=== PATIENT | male | born 1940 | race Caucasian/White ===

== ENCOUNTER → 2016-06-09 | Outpatient (CLI) | payer MEDICARE, OTHER ==
--- NOTE | 2016-06-09 08:55 | CT ---
EXAM DESCRIPTION: CT CHEST WITHOUT IV CONTRAST CLINICAL HISTORY: OTHER DISORDERS OF THE LUNG COMPARISON: 10 November 2015. TECHNIQUE: Transaxial images were obtained without intravenous contrast media. Sagittal and coronal reconstruction was performed. FINDINGS: The thyroid is normal in appearance. No pathologic axillary adenopathy is observed. No hilar or mediastinal adenopathy is observed. A single prominent pretracheal node is observed. It has a normal fatty hilum. Coronary artery calcification is noted. No pleural fluid is seen. No adrenal masses are detected. Bullous changes are observed the lung apices. Degenerative changes are seen in the thoracic spine. A 1 cm in diameter scar-like mass is observed at the left lung apex. It has minimal calcification within it. Some upper lobe parenchymal scarring is observed on the patient's right. There is a small pleural-based nodule in the right anterior upper lobe. It measures 4.3 mm in diameter remains unchanged the prior exam. The lung parenchymal abnormalities remain unchanged when compared to the remote exam of 30 March 2014. IMPRESSION: Findings of bullous emphysema and upper lobe parenchymal scarring are observed. There there has been no significant interval change remote exam of 30 March 2014. Electronically signed by: Neo Bowser MD 06/09/2016 08:54
== END ==
LOC: CT 08:11
PROVIDERS: ATTEND Internal Medicine
DX: J98.4 Other disorders of lung (principal); J43.9 Emphysema, unspecified

== ENCOUNTER → 2016-06-20 | Outpatient (CLI) | payer MEDICARE, OTHER ==
--- NOTE | 2016-06-20 09:29 | RAD ---
EXAM DESCRIPTION: XR KNEE 4 OR MORE VIEWS CLINICAL HISTORY: PAIN IN RIGHT KNEE COMPARISON: None. TECHNIQUE: Three views. FINDINGS: Loss of medial and lateral joint space is observed. Minimal lateral tibial and femoral osteophyte formation is observed. Calcific atherosclerotic change is observed in the popliteal artery. Patellofemoral joint degenerative changes are observed. A small joint effusion is evident. No fracturing is detected. IMPRESSION: Tricompartmental joint degenerative changes are observed. A joint effusion is evident. Electronically signed by: Neo Bowser MD 06/20/2016 09:27
--- NOTE | 2016-06-20 09:32 | RAD ---
EXAM DESCRIPTION: XR PELVIS 1-2 VIEWS CLINICAL HISTORY: PAIN IN RIGHT HIP COMPARISON: 21 April 2011. TECHNIQUE: AP pelvis FINDINGS: Loss of joint space is observed in the left hip. Calcific atherosclerotic change is observed in the iliac and femoral vessels. Degenerative changes are observed the lower lumbar spine. Mild degenerative changes are observed in the sacroiliac joints. No fracturing is detected. IMPRESSION: Degenerative changes are observed the lower lumbar spine and sacroiliac joints. There is also loss of joint space in the left hip. Electronically signed by: Neo Bowser MD 06/20/2016 09:29
== END ==
LOC: RAD 08:11
PROVIDERS: ATTEND Orthopaedic Surgery
DX: M25.561 Pain in right knee (principal); M12.861 Other specific arthropathies, not elsewhere classified, right knee; M12.88 Other specific arthropathies, not elsewhere classified, other specified site; M25.551 Pain in right hip

== ENCOUNTER → 2016-09-26 | Outpatient (CLI) | payer MEDICARE, OTHER ==
--- NOTE | 2016-09-27 08:02 | RAD ---
Procedure: XR CHEST 2 VIEWS Exam Date: 09/26/2016 Ordering Provider: ALEXANDRIA COURTNEY Clinical Indication: Pneumonia Comparison: 06/09/2016 CT chest Findings: The heart is not enlarged. Pulmonary vasculature is normal. Mediastinal contour is normal. Aortic calcification. Changes of COPD/emphysema. There is no focal lung consolidation. Left basilar scarring. No pleural effusion. There is no pneumothorax. There is no acute bony or soft tissue abnormality. Impression: 1. No acute abnormalities in the chest. 2. COPD/emphysema. Electronically signed by: Abdoul Cr MD 09/27/2016 8:01 AM CDT
== END | disposition home or self-care (01) ==
LOC: RAD 11:34
PROVIDERS: ATTEND Nurse Practitioner Family
DX: J18.9 Pneumonia, unspecified organism (principal)

== ENCOUNTER → 2016-12-29 | Outpatient (CLI) | payer MEDICARE, OTHER ==
--- NOTE | 2017-01-01 09:01 | RAD ---
EXAM DESCRIPTION: Chest,2 Views CLINICAL HISTORY: 76 years, Male, COPD COMPARISON: September 26 FINDINGS: Adequate inspiration. Fibrotic type changes lower lung zones. Cardiac silhouette normal. Degenerative changes thoracic spine. IMPRESSION: Chronic appearing lung change with normal heart size Electronically signed by: Angus Leonard MD 01/01/2017 9:00 AM CDT
== END ==
LOC: LAB.O 08:23
PROVIDERS: ATTEND Nurse Practitioner Family
DX: I10 Essential (primary) hypertension (principal); J44.9 Chronic obstructive pulmonary disease, unspecified

== ENCOUNTER → 2017-04-03 | Outpatient (CLI) | payer MEDICARE, OTHER | LOC: SL 20:30 | PROVIDERS: ATTEND Urology | DX: G47.33 Obstructive sleep apnea (adult) (pediatric) (principal) ==

== ENCOUNTER → 2017-11-26 | Outpatient (CLI) | payer MEDICARE, OTHER ==
--- NOTE | 2017-11-26 10:42 | RAD ---
EXAM DESCRIPTION: Knee,Right Complete CLINICAL HISTORY: 76 years Male, KNEE PAIN COMPARISON: None. FINDINGS: Four views of the right knee show no acute fracture or malalignment. Tricompartmental degenerative changes are noted including joint space narrowing and osteophyte formation, worse in the lateral compartment including moderately advanced lateral joint space narrowing. Vascular calcifications are present. Tiny right knee joint effusion. IMPRESSION: Tricompartmental degenerative changes including moderately advanced lateral joint space narrowing with a small right knee joint effusion. Vascular calcifications. Electronically signed by: Guevara Lynn MD 11/26/2017 10:41 AM CDT
--- NOTE | 2017-11-26 10:44 | RAD ---
EXAM DESCRIPTION: Pelvis CLINICAL HISTORY: 76 years Male, HIP PAIN COMPARISON: None. FINDINGS: Single AP view of the pelvis was obtained. The right greater trochanter is excluded from this exam. With this in mind, no acute fracture or malalignment is seen. Mild bilateral hip joint space narrowing is noted, worse on the left side. Vascular calcifications are present. The bones appear demineralized. Degenerative changes are noted in the lower lumbar spine at several levels including degenerative disc disease. IMPRESSION: Generalized bony demineralization and mild degenerative changes in both hips. Degenerative disc disease at L3-4 and L4-5. Vascular calcifications Electronically signed by: Guevara Lynn MD 11/26/2017 10:42 AM CDT
== END ==
LOC: RAD 10:00
PROVIDERS: ATTEND Orthopaedic Surgery
DX: M25.561 Pain in right knee (principal); M25.551 Pain in right hip; M51.36 Other intervertebral disc degeneration, lumbar region

== ENCOUNTER 2018-03-05 05:54 | Day surgery (SDC) | payer MEDICARE, OTHER ==
[2018-03-05] MEDS ORDERED: ceFAZolin SODIUM 1 GM VIAL ONE ×2 (05:59→08:05)
[2018-03-05] MEDS ORDERED: SODIUM CHL 0.9% 100ML MINI-BAG 100 ML IVPB ONE (05:59)
[2018-03-05] MEDS ORDERED: LACTATED RINGERS 1,000 ML ONE (05:59)
[2018-03-05] MEDS ORDERED: LIDOCAINE 1% 10 ML VIAL INJ ONE (08:05)
[2018-03-05] MEDS ORDERED: VANCOMYCIN HCL INJ 1,000 MG VIAL IVPB ONE (08:05)
[2018-03-05] MEDS ORDERED: BUPIVACAINE 0.25% INJ 30 ML VIAL INJ ONE (08:05)
[2018-03-05] MEDS ORDERED: fentaNYL CITRATE INJ 50 MCG/ML AMP ONE (10:22)
[2018-03-05 11:35] VITALS: O2SAT 95
[2018-03-05 13:05] VITALS: BP 182/81; TEMP 96.5
--- NOTE | 2018-03-11 09:07 | OP ---
DATE OF PROCEDURE: 03/05/18 PREOPERATIVE DIAGNOSIS: 1. Ganglion cyst, left fourth digit. POSTOPERATIVE DIAGNOSIS: 1. Ganglion cyst, left fourth digit. PROCEDURE: 1. Excision of cyst. SURGEON: Ishaan Luna MD. BOTTOM SANDER: David Lin CST, SA-C. ANESTHESIA: Local with sedation. COMPLICATIONS: None. FINDINGS: Ganglion cyst of the fourth digit. INDICATION: Mr. Rankin has a history of swelling of the fourth digit that has been somewhat intermittent, but consistently present to some degree. The swelling was diagnosed as a ganglion cyst. After discussing the risks, benefits and alternatives to operative therapy with him, he has given informed consent. PROCEDURE: The patient was brought to the Operating Room and placed in supine position. Sedation was administered and local anesthetic was injected into the operative area. Following local anesthetic, the hand was sterilely prepped and draped. Following prepping and draping, an incision was made directly overlying the cyst. After identification of the cyst, blunt dissection was used to core the cyst out and it was transected at its base. Following that, the wound was very thoroughly irrigated and after irrigation, it was closed with Nylon suture. Sterile dressings were placed. The patient was awoken from anesthesia and taken to Recovery. POSTOPERATIVE PLAN: He will followup with us in approximately two days. #[id number] [facility]
== END 2018-03-05 11:50 | disposition home or self-care (01) ==
LOC: AMB 05:54
PROVIDERS: ATTEND Orthopaedic Surgery
DX: M67.432 Ganglion, left wrist (principal); I10 Essential (primary) hypertension; I25.10 Atherosclerotic heart disease of native coronary artery without angina pectoris; E11.9 Type 2 diabetes mellitus without complications; J44.9 Chronic obstructive pulmonary disease, unspecified; Z88.5 Allergy status to narcotic agent; Z87.891 Personal history of nicotine dependence; Z79.82 Long term (current) use of aspirin; Z79.899 Other long term (current) drug therapy
CPT/HCPCS: 01810; 25111; 36416; 82948; 87070; 88304; J0690; J3010; J3370; J7050; J7120

== ENCOUNTER → 2018-03-31 | Outpatient (CLI) | payer MEDICARE, OTHER | LOC: SL 20:28 | PROVIDERS: ATTEND Psychiatry & Neurology Neurology | DX: G47.33 Obstructive sleep apnea (adult) (pediatric) (principal) ==

== ENCOUNTER → 2018-12-17 | Outpatient (CLI) | payer MEDICARE, OTHER ==
--- NOTE | 2018-12-17 09:46 | RAD ---
EXAM DESCRIPTION: Chest,2 Views CLINICAL HISTORY: 78 years Male, SOLITARY PULMONARY NODULE COMPARISON: Radiographs the chest dated 12/21/2016. TECHNIQUE: PA and lateral radiographs of the chest were obtained. FINDINGS: Trachea is midline.The cardiomediastinal silhouette is normal in size. The pulmonary vasculature is within normal limits. Mild diffuse interstitial prominence is present. The lungs are clear with no acute consolidation.No evidence of pleural effusions.No evidence of pneumothorax. IMPRESSION: No acute cardiopulmonary process. Electronically signed by: Rose Hernández MD 12/17/2018 9:42 AM CDT
== END ==
LOC: LAB.O 08:45
PROVIDERS: ATTEND Nurse Practitioner Family
DX: R91.1 Solitary pulmonary nodule (principal); I10 Essential (primary) hypertension; E11.9 Type 2 diabetes mellitus without complications

== ENCOUNTER → 2019-02-14 | Outpatient (CLI) | payer MEDICARE, OTHER ==
--- NOTE | 2019-02-14 18:16 | RAD ---
EXAM DESCRIPTION: Pelvis CLINICAL HISTORY: RT HIP PAIN COMPARISON: 11/26/2017 TECHNIQUE: Frontal view of the pelvis. FINDINGS: Overlying bowel gas partially obscures the sacrum and medial aspect of the bilateral iliac wings, limiting evaluation within these regions. No acute displaced fracture or dislocation seen. The bilateral hip joints are intact. No displaced hip fractures. Moderate bilateral sacroiliac joints and lower lumbar spine degenerative changes. Atherosclerotic vascular calcifications are present. . IMPRESSION: 1. No acute displaced pelvic fracture. 2. If the patient's symptoms persist further evaluation with MRI can be considered. Electronically signed by: Ra Payne DO 02/14/2019 6:14 PM CDT
--- NOTE | 2019-02-14 18:19 | RAD ---
EXAM DESCRIPTION: Knee,Right Complete CLINICAL HISTORY: 78 years, Male, KNEE PAIN COMPARISON: 06/20/2016 TECHNIQUE: Four views of the right knee FINDINGS: No acute displaced fracture or dislocation is seen.: Moderate to severe tricompartmental knee joint osteoarthrosis with joint space narrowing, subchondral sclerosis and bulky marginal osteophyte formation is more pronounced at the medial knee compartment. Degenerative hypertrophy of the tibial spine. Small knee joint effusion. Moderate atherosclerotic vascular calcifications are present. IMPRESSION: 1. No acute osseous abnormality. 2. Moderate to severe right knee osteoarthrosis with small knee joint effusion. Electronically signed by: Ra Payne DO 02/14/2019 6:17 PM CDT
== END ==
LOC: RAD 07:24
PROVIDERS: ATTEND Orthopaedic Surgery
DX: M17.11 Unilateral primary osteoarthritis, right knee (principal); M25.551 Pain in right hip

== ENCOUNTER → 2019-05-12 | Outpatient (CLI) | payer MEDICARE, OTHER ==
--- NOTE | 2019-05-12 11:28 | RAD ---
EXAM DESCRIPTION: Ribs,Right 3 Views CLINICAL HISTORY: 78 years Male, PLEURODYNIA RIGHT COMPARISON: None. Findings: Three views/radiographs No pneumothorax or pleural effusion identified. Osteopenia. No acute displaced rib fracture identified. Degenerative changes in the right shoulder. Atherosclerotic plaque in the thoracic aorta. Right suprahilar airspace opacity of uncertain significance. IMPRESSION: Right suprahilar airspace opacity. An underlying mass is not excluded. Recommend CT chest for further evaluation. Electronically signed by: El Calloway MD 05/12/2019 11:26 AM [employer]
== END ==
LOC: RAD 09:41
PROVIDERS: ATTEND Nurse Practitioner Family
DX: R07.81 Pleurodynia (principal)

== ENCOUNTER → 2019-05-13 | Outpatient (CLI) | payer MEDICARE, OTHER ==
--- NOTE | 2019-05-13 11:49 | CT ---
EXAM DESCRIPTION: Chest w/Contrast CLINICAL HISTORY: 78 years Male, OTHER NONSPECIFIC ABNORMAL FINDING OF LUNG FIELD COMPARISON: Rib series dated 12 May 2019 TECHNIQUE: Transaxial images were obtained with intravenous contrast media. Sagittal and coronal reconstruction was performed.This exam was performed according to our departmental dose-optimization program, which includes automated exposure control, adjustment of the mA and/or kV according to patient size and/or use of iterative reconstruction technique. FINDINGS: The thyroid is normal in appearance. Apical bullous change and parenchymal scarring is observed. A large mass is observed in the posterior paratracheal region. There is also pretracheal adenopathy and right hilar adenopathy. Subcarinal adenopathy is noted. A second maribell cluster is observed in the right periaortic region inferiorly. No adrenal masses are detected. A small pleural-based nodule is observed along the anterolateral chest wall in the right middle lobe. Some posterior pleural-based thickening is noted. No pleural fluid is noted. Coronary artery calcification is observed. No bone abnormality is seen. IMPRESSION: 1. Extensive mediastinal adenopathy is observed. Lymphoma is suspected. Electronically signed by: Neo Bowser MD 05/13/2019 11:47 AM [facility]
== END ==
LOC: CT 09:30
PROVIDERS: ATTEND Nurse Practitioner Family
DX: R91.8 Other nonspecific abnormal finding of lung field (principal); R59.9 Enlarged lymph nodes, unspecified

== ENCOUNTER → 2019-05-14 | Outpatient (CLI) | payer MEDICARE, OTHER | LOC: LAB.O 12:30 | PROVIDERS: ATTEND Nurse Practitioner Family | DX: C38.3 Malignant neoplasm of mediastinum, part unspecified (principal) ==

== ENCOUNTER 2019-05-29 11:50 | Emergency (ER) | payer MEDICARE, OTHER ==
--- NOTE | 2019-05-29 13:05 | RAD ---
EXAM DESCRIPTION: Chest,2 Views CLINICAL HISTORY: wt loss, decreased po intake, known chest mass COMPARISON: Rib series May 12, 2019, chest x-ray December 29, 2016, CT chest May 13, 2017 TECHNIQUE: PA/lateral FINDINGS: Wide superior mediastinum with enlarged right hilum consistent with mass or adenopathy. Patient had CT of the chest showing bulky adenopathy consistent with lymphoma or lung cancer. Correlate with biopsy results. Scarring is seen in the right upper lobe. On the present chest x-ray, increased density is seen in the right lower lung zone and in the right upper lobe above the minor fissure consistent with patchy areas of pneumonic infiltration. Left lung remains clear. Lateral view shows osteopenic T-spine. Sternum appears intact. Lungs appear hyperexpanded on the lateral view. IMPRESSION: Wide superior mediastinum and large right pulmonary hilum consistent with mass or adenopathy. Patchy infiltrates in the right upper lobe and right lower lobe. Electronically signed by: Hilario Rivas MD 05/29/2019 1:04 PM [facility]
--- NOTE | 2019-05-29 13:06 | RAD ---
EXAM DESCRIPTION: Abdomen Flat Upright CLINICAL HISTORY: 78 years Male, wt loss, decreased po intake, known chest mass COMPARISON: None. FINDINGS: Upright view shows no free air under the diaphragm. Supine view shows degenerative changes in the lower lumbar spine. Bowel gas pattern is unremarkable. Calcified splenic artery in the left upper quadrant. Bones appear osteopenic. No bowel dilatation to suggest obstruction. IMPRESSION: Unremarkable bowel gas pattern. Electronically signed by: Hilario Rivas MD 05/29/2019 1:05 PM [facility]
[2019-05-29] MEDS ORDERED: cefTRIAXone SODIUM 1 GM in SODIUM CHL 0.9% 50ML MIN-BAG+ 50 ML IVPB ONE (13:14)
[2019-05-29] MEDS ORDERED: SODIUM CHLORIDE 0.9% 1000ML 1,000 ML IVS ONE (13:14)
[2019-05-29] MEDS ORDERED: AZITHROMYCIN IV 500 MG in SODIUM CHLORIDE 0.9% 250ML 250 ML IVPB ONE (13:14)
[2019-05-29] MEDS ORDERED: cefTRIAXone SODIUM 1 GM VIAL ONE (13:44)
[2019-05-29] MEDS ORDERED: SODIUM CHL 0.9% 50ML MIN-BAG+ 50 ML IVPB ONE (13:44)
--- NOTE | 2019-05-29 14:26 | ED.PDOC ---
History of Present Illness - General Chief Complaint: Neuro Symptoms/Deficits Stated Complaint: ALTERED MENTAL STATUS Time Seen by Provider: 05/29/19 12:11 Source: patient, family Exam Limitations: clinical condition - History of Present Illness Initial Comments: the patient is a 78-year-old male brought in by family secondary to increasing cough and shortness of breath last night as well as some mild confusion that is worse than normal for him. He does have some mild dementia as well as chronic lung disease. About 3 weeks ago he was evaluated for some back pain and was incidentally found to have a mediastinal mass at that time. He was being set up with a cardiothoracic surgeon in [place] however he has not been able to get the appointment yet. Family reports significant decreased oral intake over about the last 10-12 days both solids and liquids. The patient reports that he is just not hungry and does not want to eat. Family reports significant wasting. No vomiting. No abdominal pain. Timing/Duration: 24 hours Severity: moderate Improving Factors: nothing Worsening Factors: nothing Associated Symptoms: cough, loss of appetite, malaise, weakness Allergies/Adverse Reactions: Allergies Albuterol Allergy (Mild, Verified 03/01/18 09:36) Other Codeine Allergy (Mild, Verified 03/01/18 09:36) Zolpidem [From Ambien] Adverse Reaction (Intermediate, Verified 03/01/18 09:36) Home Medications: Ambulatory Orders Amiodarone HCl 200 mg PO DAILY 07/25/13 Aspirin [Aspirin 81] 81 mg PO DAILY 07/25/13 Diltiazem HCl Coated Beads [Diltiazem Cd] 120 mg PO DAILY 07/25/13 Pravastatin Sodium 40 mg PO HS 07/25/13 Budes/Formoterol INH 160/4.5 [Symbicort Inhaler 160/4.5] 1 puff INH BID 01/28/14 Fluticasone Prop 0.05% Nasal [Flonase Nasal [place]] 50 mcg NA DAILY 01/28/14 Potassium Chloride [Micro-K] 8 meq PO DAILY 01/28/14 Metoprolol Succinate [Metoprolol Succinate ER] 50 mg PO DAILY 01/29/14 Multiple Vitamin [Multi Vitamin Mens] 1 ea PO DAILY 07/21/14 Donepezil HCl [Aricept] 10 mg PO BEDTIME 03/01/18 Fluticasone Propionate (Nasal) [ Fluticasone Propionate] 50 mcg NA DAILY 03/01/18 Losartan Potassium [Cozaar] 25 mg PO DAILY 03/01/18 Review of Systems - Review of Systems Constitutional: States: fever - last night, malaise, weakness EENTM: States: nose congestion Respiratory: States: cough, short of breath Cardiology: States: no symptoms reported Gastrointestinal/Abdominal: States: no symptoms reported Genitourinary: States: no symptoms reported Musculoskeletal: States: no symptoms reported Skin: States: no symptoms reported Neurological: States: see HPI Endocrine: States: no symptoms reported All other Systems: No Change from Baseline Past Medical History (General) - Patient Medical History Hx Seizures: No Hx Stroke: Yes Hx Dementia: No Hx Asthma: No Hx of COPD: Yes Hx Cardiac Disorders: Yes - hx atrial fibrillation Hx Congestive Heart Failure: No Hx Pacemaker: No Hx Hypertension: No Hx Thyroid Disease: No Hx Diabetes: Yes Hx Gastroesophageal Reflux: Yes Hx Renal Disease: No Hx Cancer: No Hx of HIV: No Hx Hepatitis C: No Hx MRSA: No Surgical History: appendectomy, other - Vaccination History Hx Tetanus, Diphtheria Vaccination: No Hx Influenza Vaccination: Yes Hx Pneumococcal Vaccination: Yes - Social History Hx Tobacco Use: Yes Hx Chewing Tobacco Use: No Hx Alcohol Use: No Hx Substance Use: No Hx Substance Use Treatment: No Hx Depression: No Hx Physical Abuse: No Hx Emotional Abuse: No Hx Suspected Abuse: No - Female History Patient : No Family Medical History - Family History Father Family History: Unknown Living Status: Hx Family Asthma: No Hx Family Congestive Heart Failure: Yes Hx Family Hypertension: No Hx Family Stroke: Yes Hx Cardiac Disease: Yes Hx Family Diabetes: No Hx Family Cancer: No Physical Exam - Physical Exam General Appearance: Alert, Ill Appearing Eye Exam: bilateral normal Ears, Nose, Throat: hearing grossly normal, nasal congestion Neck: full range of motion, supple Respiratory: no respiratory distress, no accessory muscle use, other - he does have some significant rhonchi on the right. Cardiovascular/Chest: normal peripheral pulses, regular rate, rhythm, no edema Peripheral Pulses: radial,right: 2+, radial,left: 2+, dorsalis pedis,right: 2+, dorsalis pedis,left: 2+ Gastrointestinal/Abdominal: non tender, soft Rectal Exam: deferred Back Exam: no vertebral tenderness Extremity: non-tender, normal inspection, no pedal edema, normal capillary refill Neurologic: time study technologist II-XII nml as tested, alert, normal mood/affect, oriented x 3 Skin Exam: normal color Comments: Vital Signs - 24 hr 05/29/19 05/29/19 12:01 13:28 Temperature 97.3 F L Pulse Rate [ 79 77 Left Radial] Respiratory 24 Rate Blood Pressure 162/111 176/105 [left brachial] O2 Sat by Pulse 94 L 91 L Oximetry the patient does have some significant cachexia. Progress - Progress Progress: 05/29/19 14:28 the patient is a 78-year-old male presenting to the emergency room secondary to mild confusion last night along with a low-grade fever and a new productive cough in conjunction with more than a week's worth of decreased oral intake. The patient does have mild dehydration and did receive a liter of IV fluids. Additionally the patient does appear to be developing a right-sided pneumonia. This is possibly related to the hilar mass. The patient is being transferred to [facility] [place] where specialty evaluation can be obtained in regards to this mass. Certainly if it is a source of the pneumonia then directed treatment, if possible may be beneficial. The patient has been started on Rocephin and azithromycin. Cultures have been done. Transferring for specialty care. He does require some supplemental oxygen to maintain oxygen saturations greater than 90%. - Results/Orders Results/Orders: chest x-ray shows right lung field infiltrates. Mediastinal mass is again noted. Laboratory Tests 05/29/19 05/29/19 05/29/19 12:21 12:21 12:21 WBC 14.0 H RBC 5.13 Hgb 14.5 Hct 44.0 MCV 85.8 MCH 28.2 MCHC 32.9 L RDW 14.9 H Plt Count 350 MPV 7.7 Absolute Neuts (auto) 12.10 H Absolute Lymphs (auto) 1.10 Absolute Monos (auto) 0.80 Absolute Eos (auto) 0.00 Absolute Basos (auto) 0.00 Neutrophils % 86.3 H Lymphocytes % 7.5 L Monocytes % 5.8 Eosinophils % 0.2 L Basophils % 0.2 PT 10.9 INR 1.09 PTT (SP) 27.2 D-Dimer, Quantitative 3.37 H* Sodium 135 Potassium 4.0 Chloride 96 L Carbon Dioxide 27 Anion Gap 16.0 BUN 31 H Creatinine 1.05 BUN/Creatinine Ratio 29.5 H Random Glucose 95 Serum Osmolality 276.4 Lactic Acid Calcium 9.4 Magnesium Total Bilirubin 0.6 AST 33 ALT 21 Alkaline Phosphatase 73 Creatine Kinase 92 CK-MB (CK-2) 5.2 H* CK-MB (CK-2) % 5.65 H Troponin I 0.08 H* B-Natriuretic Peptide 361.0 H* Serum Total Protein 6.9 Albumin 3.1 L Globulin 3.8 H Albumin/Globulin Ratio 0.8 L Amylase 23 L Lipase TSH 05/29/19 05/29/19 12:21 12:21 WBC RBC Hgb Hct MCV MCH MCHC RDW Plt Count MPV Absolute Neuts (auto) Absolute Lymphs (auto) Absolute Monos (auto) Absolute Eos (auto) Absolute Basos (auto) Neutrophils % Lymphocytes % Monocytes % Eosinophils % Basophils % PT INR PTT (SP) D-Dimer, Quantitative Sodium Potassium Chloride Carbon Dioxide Anion Gap BUN Creatinine BUN/Creatinine Ratio Random Glucose Serum Osmolality Lactic Acid 2.1 Calcium Magnesium 2.0 Total Bilirubin AST ALT Alkaline Phosphatase Creatine Kinase CK-MB (CK-2) CK-MB (CK-2) % Troponin I B-Natriuretic Peptide Serum Total Protein Albumin Globulin Albumin/Globulin Ratio Amylase Lipase 30 TSH 9.43 H Departure - Departure Clinical Impression: Mediastinal mass, Dehydration, Delirium Pneumonia Qualifiers: Pneumonia type: due to unspecified organism Laterality: right Lung location: middle lobe of lung Qualified Code(s): J18.9 - Pneumonia, unspecified organism Disposition: Transfer to Hospital Departure Forms: ED Discharge - Pt. Copy, Patient Portal Self Enrollment Referrals: ALEXANDRIA COURTNEY IV, [facility] [Primary Care Provider] - 1-2 Weeks Home Medications: Ambulatory Orders Amiodarone HCl 200 mg PO DAILY 07/25/13 Aspirin [Aspirin 81] 81 mg PO DAILY 07/25/13 Diltiazem HCl Coated Beads [Diltiazem Cd] 120 mg PO DAILY 07/25/13 Pravastatin Sodium 40 mg PO HS 07/25/13 Budes/Formoterol INH 160/4.5 [Symbicort Inhaler 160/4.5] 1 puff INH BID 01/28/14 Fluticasone Prop 0.05% Nasal [Flonase Nasal [place]] 50 mcg NA DAILY 01/28/14 Potassium Chloride [Micro-K] 8 meq PO DAILY 01/28/14 Metoprolol Succinate [Metoprolol Succinate ER] 50 mg PO DAILY 01/29/14 Multiple Vitamin [Multi Vitamin Mens] 1 ea PO DAILY 07/21/14 Donepezil HCl [Aricept] 10 mg PO BEDTIME 03/01/18 Fluticasone Propionate (Nasal) [ Fluticasone Propionate] 50 mcg NA DAILY 03/01/18 Losartan Potassium [Cozaar] 25 mg PO DAILY 03/01/18 Transfer to Outside Facility - Transfer Information Decision to Transfer Date: 05/29/19 Decision to Transfer Time: 14:30 Reason for Transfer: required specialist not available Accepting Provider:: dr templeton Accepting Facility: [facility]
[2019-05-29] MEDS ORDERED: IPRATROPIUM BROMIDE NEBS 0.5 MG/2.5 ML VIAL NEB ONE ×2 (14:31)
[2019-05-29] MEDS ORDERED: LEVALBUTEROL NEBS 1.25 MG/3 ML VIAL NEB ONE ×2 (14:31)
[2019-05-29] MEDS ORDERED: SODIUM CHLORIDE 0.9% 250ML 250 ML ONE (15:18)
[2019-05-29] MEDS ORDERED: AZITHROMYCIN IV 500 MG VIAL IVPB ONE (15:18)
[2019-05-29 17:23] VITALS: BP 183/103; TEMP 96.9; O2SAT 94
== END 2019-05-29 15:45 | disposition short-term general hospital (02) ==
LOC: ER 11:50
DX: J18.9 Pneumonia, unspecified organism (principal); E86.0 Dehydration; R41.0 Disorientation, unspecified; R22.2 Localized swelling, mass and lump, trunk; F03.90 Unspecified dementia, unspecified severity, without behavioral disturbance, psychotic disturbance, mood disturbance, and anxiety; J44.9 Chronic obstructive pulmonary disease, unspecified; I48.91 Unspecified atrial fibrillation; R64 Cachexia; E11.9 Type 2 diabetes mellitus without complications; K21.9 Gastro-esophageal reflux disease without esophagitis; Z86.73 Personal history of transient ischemic attack (TIA), and cerebral infarction without residual deficits; Z87.891 Personal history of nicotine dependence; Z79.899 Other long term (current) drug therapy; Z79.82 Long term (current) use of aspirin; Z88.8 Allergy status to other drugs, medicaments and biological substances; Z88.5 Allergy status to narcotic agent
CPT/HCPCS: 36415; 71046; 74019; 80053; 81001; 82150; 82550; 82553; 83605; 83690; 83735; 83880; 84443; 84484; 85025; 85379; 85610; 85730; 87040; 87086; 87502; 94640; J0456; J0696; J7030; J7050; J7614; J7644

== ENCOUNTER 2019-06-06 11:16 | Inpatient (IN) | payer OTHER ==
--- NOTE | 2019-06-06 11:24 | HP ---
SUPERVISING PHYSICIAN: Meño Zaldivar MD CHIEF COMPLAINT: Inpatient hospice for endstage lung cancer. HISTORY OF PRESENT ILLNESS: Mr. Rankin is a 78 year-old male patient who was recently seen in the Emergency Room last week and transferred to [place]. In [place], a biopsy of his lung revealed he had stage IV lung cancer. He was seen by oncologist, Dr. Barker, who was going to try chemotherapy, however, the cancer was extensive and after further discussion with Dr. Barker and the family the decision was take the patient and put him on inpatient hospice. The patient is now going to be admitted to inpatient hospice services to [facility]. PAST MEDICAL HISTORY: 1. Stage IV lung cancer. 2. Hypertension. 3. Chronic obstructive pulmonary disease. 4. Diabetes mellitus, diet controlled. PAST SURGICAL HISTORY: 1. Right rotator cuff surgery. 2. Left knee replacement. 3. Right knee surgery. 4. Hernia repair. CURRENT MEDICATIONS: See list provided by hospice. No chronic home medications. ALLERGIES: Albuterol, codeine and Zolpidem. FAMILY HISTORY: Noncontributory. SOCIAL HISTORY: The patient is a previous smoker, he quit in 2013. He used to drink alcohol extensively but quit multiple years previously. He is retired. He is and lives. in [place]. He has multiple children. REVIEW OF SYSTEMS: CONSTITUTIONAL: Positive for general malaise, weakness, no reported fever. HEENT: Negative for sore throats, earaches, nasal congestion, vision changes. RESPIRATORY: As noted in history of present illness. Severe respiratory compromise secondary to ongoing lung cancer. CARDIOVASCULAR: Negative for chest pain, palpitations or syncopal episodes. GASTROINTESTINAL: Negative for nausea, vomiting, diarrhea, constipation. GENITOURINARY: Negative for dysuria, hematuria, polyuria. NEUROLOGIC: Negative for any neurological focal deficits, seizures, ataxia PHYSICAL EXAMINATION: VITAL SIGNS: Temperature 96.9, pulse 78, blood [id number]/103, respirations 22, oxygen saturation 95% on the hi-flow cannula at 8 liters. GENERAL: The patient appears unwell, unkept, exhausted but is conscious at time of exam and in no acute distress. He is also cathartic in appearance. HEENT: Tympanic membranes clear bilaterally. Oropharynx is pink, moist without any lesions. NECK: Supple, nontender with full range of motion. No jugular venous distention noted. RESPIRATORY: Lung sounds are noted with rhonchi heart throughout with no obvious inspiratory or expiratory wheezes or rales.. CARDIOVASCULAR: Regular rate and rhythm without any appreciable murmurs, gallops, or rubs. ABDOMEN: Soft, nontender. Positive bowel sounds. EXTREMITIES: There is no edema. NEUROLOGIC: The patient is alert and oriented times three. LABORATORY AND RADIOLOGY: None. He is on inpatient hospice. ASSESSMENT: 1. Stage IV lung cancer with patient opting to not seek any treatment and go to hospice care. 2. Hypertension poorly controlled. 3. Chronic obstructive pulmonary disease with exacerbation secondary to #1. 4. Diabetes mellitus diet controlled. PLAN: The patient is going to be admitted to inpatient hospice under the care of [facility]. Hospice nurse will write orders. We will follow the patient as needed. I would anticipate length of stay to be anywhere from 2 to 7 days as the patient's prognosis is quite grim and he is very fragile at this point. Family members are present at time of exam and he is comfortable. Family has been updated on plan of care and is in agreement with the plan of care. We will continue to follow the patient as needed. #[id number] [facility]
[2019-06-06 13:07] VITALS: TEMP 97.2
[2019-06-06] MEDS ORDERED: SCOPOLAMINE PATCH 1.5MG 1 EA TD SCH (14:30)
[2019-06-06] MEDS ORDERED: MAGNESIUM HYDROXIDE 30 ML UD PO PRN (16:05)
[2019-06-06] MEDS: SODIUM CHLORIDE 0.9% (FLUSH) 10 ML SYG IV SCH ×2 (17:02→21:00)
[2019-06-06] MEDS: MORPHINE SULFATE INJ 10 MG/ML VIAL IV PRN ×3 (18:25→23:45)
[2019-06-07 02:03] VITALS: BP 102/70
[2019-06-07] MEDS: MORPHINE SULFATE INJ 10 MG/ML VIAL IV PRN ×4 (05:01→14:55)
[2019-06-07] MEDS: SODIUM CHLORIDE 0.9% (FLUSH) 10 ML SYG IV SCH (07:51)
[2019-06-07 09:19] VITALS: O2SAT 90
[2019-06-07] MEDS: ATROPINE 1% OPHTH SOL 1 DROP DROPS SL PRN ×2 (10:48→13:07)
--- NOTE | 2019-06-08 17:00 | DS ---
SUPERVISING PHYSICIAN: Meño Zaldivar MD ADMITTED TO INPATIENT HOSPICE: 06/06/19 : 06/07/19 ADMISSION DIAGNOSIS: 1. Stage IV lung cancer with patient opting to not seek any treatment and go to hospice care. 2. Hypertension poorly controlled. 3. Chronic obstructive pulmonary disease with exacerbation secondary to #1. 4. Diabetes mellitus diet controlled. DISCHARGE DIAGNOSIS: 1. Cardiopulmonary arrest secondary to #1 above. REASON FOR HOSPITALIZATION: Mr. Rankin is a 78 year-old male patient who was recently seen in the Emergency Room last week and transferred to [place]. In [place], a biopsy of his lung revealed he had stage IV lung cancer. He was seen by oncologist, Dr. Barker, who was going to try chemotherapy, however, the cancer was extensive and after further discussion with Dr. Barker and the family the decision was take the patient and put him on inpatient hospice. The patient is now going to be admitted to inpatient hospice services to [facility]. HOSPITAL COURSE: The patient was admitted to inpatient hospice. The family was present throughout the entire hospitalization. Today, he was provided care and comfort measures. He remained comfortable and showed no signs of distress and quietly on June 07, 2019 with family and friends present. He was pronounced at 0625 hours. Please see nurses notes for full information on disposition of Mr. Rankin's body as he was transferred to custodial of choice. was not unexpected in his history and physical. FINAL DISPOSITION: . #[id number] [facility]
== END 2019-06-07 15:45 | disposition expired | DRG 181 ==
LOC: MS 11:16 → UNDOADMIN 11:16 → MS 12:57
PROVIDERS: ADMIT Nurse Practitioner Family; ATTEND Nurse Practitioner Family
DX: C34.90 Malignant neoplasm of unspecified part of unspecified bronchus or lung (principal); J44.1 Chronic obstructive pulmonary disease with (acute) exacerbation; Z51.5 Encounter for palliative care; Z66 Do not resuscitate; I10 Essential (primary) hypertension; E11.9 Type 2 diabetes mellitus without complications; I46.8 Cardiac arrest due to other underlying condition; Z96.652 Presence of left artificial knee joint; Z88.5 Allergy status to narcotic agent; Z88.8 Allergy status to other drugs, medicaments and biological substances; Z87.891 Personal history of nicotine dependence